=== PATIENT | male | born 1945 | race Caucasian/White ===

== ENCOUNTER → 2017-11-05 08:34 | Outpatient (CLI) | payer MEDICARE, OTHER, SELFPAY ==
[2017-11-05 12:36] LABS: Absolute Lymphocyte Count 1.08 X10^3/ul (0.83-4.51); Absolute Neutrophil Count 3.5 X10^3/uL (2.0-7.7); Basophil# 0.01 X10^3/uL; Basophil% 0.2 % (0-1); Eosinophil# 0.04 X10^3/uL; Eosinophils% 0.8 % (0-5); Hematocrit 39.6 % (40-54); Hemoglobin 13.2 g/dl (13.0-16.5); Lymphocyte # 1.08 X10^3/ul (4.0); Lymphocyte % 21.7 % (19-41); Mean Corp Hgb Conc 33.3 g/gl (32-36); Mean Corpuscular Hgb 28.5 pg (27.0-32.0); Mean Corpuscular Volume 85.5 fL (80-94); Mean Platelet Vol. 11.1 fl (6.2-12.0); Monocyte# 0.36 X10^3/uL; Monocyte% 7.2 % (0-10); Neutrophil # 3.48 X10^3/uL (2.7-7.7); Neutrophil % 70.1 % (47-70); Platelet Count 178 K/mm3 (150-450); RBC Distribution Width CV 13.8 % (11.6-14.6); RBC Distribution Width SD 42.7 fl (35.1-43.9); Red Blood Count 4.63 M/mm3 (4.6-6.2)
[2017-11-05 12:38] LABS: POSITIVE DIFFERENTIAL NO
[2017-11-05 12:39] LABS: POSITIVE COUNT NO; POSITIVE MORPHOLOGY NO
[2017-11-05 16:24] LABS: ALB/GLOB Ratio 1.1 RATIO (0.9-2.4); AST(SGOT) 35 U/L (15-37); Alanine Aminotransfer ALT/SGPT 43 U/L (16-61); Albumin, Serum 3.5 g/dL (3.2-5.0); Alkaline Phosphatase 87 U/L (45-117); Anion Gap 10 (5-15); BUN 16 mg/dL (7-18); BUN/Creat Ratio 15.7 RATIO (10-20); Chloride 107 mmol/L (98-107); Cholesterol 148 mg/dL (200); Creatinine, Serum 1.02 mg/dL (0.70-1.30); EST Glomerular Filtration Rate 77 mL/min (>60); Est Glom Filt Rate - Afr Amer 93 mL/min (>60); Globulin 3.3 g/dL (2.2-4.2); Glucose 86 mg/dL (74-106); High Density Lipoprotein 42 mg/dL; PSA,Total - Annual Screen 0.46 ng/mL (0.00-4.00); Potassium 4.4 mmol/L (3.5-5.1); Prolactin 4.5 ng/mL; Protein, Total 6.8 g/dL (6.4-8.2); Sodium Level 142 mmol/L (136-145); Thyroid Stim Hormone (TSH) 1.65 uIU/mL (0.358-3.74); Triglycerides 48 mg/dL; Very Low Density Lipoprotein 10 mg/dL (5-40)
[2017-11-11 09:07] LABS: Testosterone, % Free 1.85 % (1.50-4.20); Testosterone, Free 13.19 ng/dL (5.00-21.00)
[2017-11-11 09:31] LABS: Testosterone, Total 713 ng/dL (264-916); Transferrin 254 mg/dL (200-370)
== END ==
PROVIDERS: Family Provider Family Medicine; PCP Family Medicine; Visit Provider Family Medicine
DX: Z00.00 Encounter for general adult medical examination without abnormal findings (principal); R53.83 Other fatigue; R25.2 Cramp and spasm; E29.1 Testicular hypofunction
CPT/HCPCS: 36415; 80053; 80061; 84146; 84153; 84402; 84403; 84443; 84466; 85025; G0103

== ENCOUNTER 2018-04-30 13:17 | Emergency (ER) | payer MEDICARE, OTHER, SELFPAY ==
[2018-04-30 13:17] VITALS: BP 150/91; PULSE 73; RESP 16; TEMP 36.4; O2SAT 98; BMI 26.4
--- NOTE | 2018-04-30 14:18 | ED.DCSUM_ITS ---
- ER Visit Summary Date of Service: 04/30/18 Chief Complaint: [Abrasion right index finger] History of Present Illness: The patient is a 72 M [presents the emergency department complaint of a laceration to his right index finger that occurred yesterday around 1 PM. Patient states that he accidentally cut it on the blade of a paper cutting machine. Initially it did not bleed very much and he wrapped it up with pressure. Last evening patient noticed increased redness and swelling. Patient concerned about infection today. Patient unsure of his last tetanus. Patient does not believe that there is any foreign body in the wound.] Physical Examination: [HEENT-PERRLA, EOMI. Cranial nerves II through XII grossly intact. TMs clear. Mucous membranes moist. No adenopathy. Cardiovascular-regular rate and rhythm without murmur or ectopy Lungs-clear to auscultation, chest wall stable without crepitus or subcu emphysema Abdomen-normoactive bowel sounds, soft, nontender, no rebound or rigidity, no peritoneal signs. Extremities-intact ?4, normal range of motion, normal pulses. Right index finger-patient has what appears to be a flap-like laceration over the PIP joint dorsal aspect of right index finger. Patient does have some diffuse edema. He is got normal extension against resistance. Does have some faint erythema down into the webspace of the index finger and middle finger. Normal cap refill.] Test Results: [None indicated] Emergency Department Course and Treatment: [Patient was started on Keflex and Bactrim and was given Adacel tetanus booster.] Treatment Plan: [Patient was on Keflex and Bactrim and advised to follow-up with orthopedics on-call for wound check within next 3-5 days. Patient to return if worsening pain, swelling, or condition should worsen anyway. Patient was advised on [place] signs and to return if he feels that he has increased pain, redness, swelling, fever, or condition should worsen anyway. At this point I do not suspect a foreign body in the wound and he is in agreement that no imaging is indicated. Disposition:-Discharge to home in stable condition] Impression: [Laceration right index finger-old no repair indicated/cellulitic] This note was generated with [employer] software. It may contain incorrect words, spelling, and punctuation that were not noted in review of the chart prior to signing ED Disposition - Plan for ED Patient: Referrals: Anaya Diaz MD [Primary Care Provider] -
[2018-04-30] MEDS: Smz/Tmp Ds Tablet 1 TABLET PO (14:19)
[2018-04-30] MEDS: Diphth,Pertuss(Acell),Tet Vac 0.5 ML Vial IM (14:19)
[2018-04-30] MEDS: Cephalexin 250 MG Capsule 500 MG PO (14:19)
--- NOTE | 2018-04-30 14:19 | ED.DEP ---
ED Disposition - Plan for ED Patient: Instructions: ED Laceration Old Not Sutr, ED Infec Skin Cellulitis Prescriptions: Cephalexin [Keflex] 500 mg PO Q6 #40 cap Smz/Tmp Ds [Bactrim Ds] 1 tab PO BID #20 tab Referrals: Anaya Diaz MD [Primary Care Provider] - Vel Castellano DO [STAFF PHYSICIAN] - 3-5 Days
[2018-04-30 14:22] VITALS: TEMP 36.8
== END 2018-04-30 14:40 | disposition home or self-care (01) ==
LOC: ED 14:29
PROVIDERS: Emergency Provider Emergency Medicine; Family Provider Family Medicine; PCP Family Medicine
DX: S61.210A Laceration without foreign body of right index finger without damage to nail, initial encounter (principal); L03.011 Cellulitis of right finger; W26.8XXA Contact with other sharp object(s), not elsewhere classified, initial encounter; Y93.9 Activity, unspecified; Y92.9 Unspecified place or not applicable
CPT/HCPCS: 90715; 99283